=== PATIENT | male | born 1965 | race Caucasian/White ===

== ENCOUNTER 2019-11-19 08:22 | Emergency (ER) | payer BC ==
[2019-11-19] MEDS ORDERED: KETOROLAC 30 MG/ML INJ ONE (08:43)
--- NOTE | 2019-11-19 09:22 | RAD REPORT ---
EXAM DESCRIPTION: Yasmani Single View11/19/2019 9:08 am CLINICAL HISTORY: Chest pain COMPARISON: 2010 FINDINGS: The lungs appear clear of acute infiltrate. The heart is normal size IMPRESSION: No acute abnormalities displayed
--- NOTE | 2019-11-19 09:22 | RAD REPORT ---
EXAM DESCRIPTION: RAD - Ribs Left - 11/19/2019 9:08 am CLINICAL HISTORY: Left rib pain FINDINGS: A acute rib fracture is not seen
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
--- NOTE | 2019-11-19 09:27 | RAD REPORT ---
EXAM DESCRIPTION: RAD - Shoulder Left 2 View - 11/19/2019 9:09 am CLINICAL HISTORY: Left shoulder pain FINDINGS: Deformity of the mid left clavicle has the appearance of an old fracture. No acute fracture . AC joint appears mildly widened probably indicating a mild sprain
[2019-11-19 09:46] VITALS: BP 118/85; TEMP 98; O2SAT 98
== END 2019-11-19 09:38 | disposition home or self-care (01) ==
LOC: ER 08:22
DX: R07.1 Chest pain on breathing (principal); M25.512 Pain in left shoulder
CPT/HCPCS: 71045; 96372; 99284